=== PATIENT | female | born 1975 | race Caucasian/White ===

== ENCOUNTER 2017-04-11 03:33 | Observation (INO) | payer OTHER ==
--- NOTE | 2017-04-11 03:55 | ED PDOC ---
Arrival/HPI - General Chief Complaint: Chest Pain Time Seen by Provider: 04/11/17 03:36 Historian: Patient - History of Present Illness Narrative History of Present Illness (Text): 04/11/17 03:52 Lisa Palacio is a 42 year old female, whose past medical history includes gestational diabetes, who presents to the Emergency department complaining of chest pain. Patient states she has been experiencing mid-sternal chest pain since waking at 02:30 today. Patient denies any fever, chills, shortness of breath, nausea, vomiting, diarrhea, urinary symptoms, back pain, neck pain, headache, dizziness, or any other complaints. Time/Duration: 1-3 hours (02:30 today) Symptom Onset: Gradual Symptom Course: Unchanged Activities at Onset: Light Context: Home Past Medical History - Provider Review Nursing Documentation Reviewed: Yes - Psychiatric Hx Substance Use: No Family/Social History - Physician Review Nursing Documentation Reviewed: Yes Family/Social History: Unknown Family HX Smoking Status: Never Smoked Hx Alcohol Use: No Hx Substance Use: No Allergies/Home Meds Allergies/Adverse Reactions: Allergies No Known Allergies Allergy (Verified 04/11/17 03:38) Home Medications: Home Meds Medication Instructions Recorded Confirmed No Known Home Med 04/11/17 04/11/17 Review of Systems - Physician Review All systems were reviewed & negative as marked: Yes - Review of Systems Constitutional: Normal. absent: Fevers Eyes: Normal ENT: Normal Respiratory: Normal. absent: SOB, Cough Cardiovascular: Chest Pain Gastrointestinal: Normal. absent: Abdominal Pain, Diarrhea, Nausea, Vomiting Genitourinary Female: Normal. absent: Dysuria, Frequency, Hematuria, Urine Output Changes Musculoskeletal: Normal. absent: Back Pain, Neck Pain Skin: Normal. absent: Rash Neurological: Normal. absent: Headache, Dizziness Endocrine: Normal Hemo/Lymphatic: Normal Psychiatric: Normal Physical Exam Vital Signs Reviewed: Yes Vital Signs Temp Pulse Resp BP Pulse Ox 04/11/17 07:01 77 16 107/63 99 04/11/17 05:40 74 18 111/65 99 04/11/17 03:48 98.0 F 72 17 135/77 100 Temperature: Afebrile Blood Pressure: Normal Pulse: Regular Respiratory Rate: Normal Appearance: Positive for: Well-Appearing, Non-Toxic, Comfortable Pain Distress: None Mental Status: Positive for: Alert and Oriented X 3 - Systems Exam Head: Present: Atraumatic, Normocephalic Pupils: Present: PERRL Extroacular Muscles: Present: EOMI Conjunctiva: Present: Normal Mouth: Present: Moist Mucous Membranes Neck: Present: Normal Range of Motion Respiratory/Chest: Present: Clear to Auscultation, Good Air Exchange. No: Respiratory Distress, Accessory Muscle Use Cardiovascular: Present: Regular Rate and Rhythm, Normal S1, S2. No: Murmurs Abdomen: Present: Normal Bowel Sounds. No: Tenderness, Distention, Peritoneal Signs Back: Present: Normal Inspection Upper Extremity: Present: Normal Inspection. No: Cyanosis, Edema Lower Extremity: Present: Normal Inspection. No: Edema Neurological: Present: GCS=15, CN II-XII Intact, Speech Normal Skin: Present: Warm, Dry, Normal Color. No: Rashes Psychiatric: Present: Alert, Oriented x 3, Normal Insight, Normal Concentration Medical Decision Making ED Course and Treatment: 04/11/17 03:52 Impression: 42 year old female complaining of mid-sternal chest pain since 02:30 today. Plan: -- EKG -- Chest X-ray -- Labs, cardiac enzymes, D-dimer -- Reassess and disposition Progress Notes: Reviewed EKG, NSR at [address]-segment elevations or depressions, no T-wave inversions, normal intervals. 04/11/17 04:43 Labs reviewed, D-dimer: 289. CTA Chest ordered. 04/11/17 06:15 Chest X-ray reviewed, shows no acute processes. 04/11/17 06:45 CTA Chest shows: Pulmonary arteries: No CT evidence for pulmonary embolus. Aorta: No acute findings. No thoracic aortic aneurysm. Lungs: Mild parabronchial cuffing, which can be seen with bronchitis, reactive airway disease or viral pneumonitis versus mild failure.There is bibasilar atelectasis. No mass. Pleural space: Unremarkable. No significant effusion. No pneumothorax. Heart: Cardiomegaly. Mediastinum: Small hiatal hernia. Bones/joints: Left sided thoracic scoliosis. No acute fracture. No dislocation. Soft tissues: Unremarkable. Lymph nodes: Bilateral hilar lymph nodes. Gallbladder and bile ducts: Distended gallbladder with gallstone. Adrenals: Normal adrenal glands. IMPRESSION: 1. No CT evidence for pulmonary embolus. 2. Mild parabronchial cuffing, which can be seen with bronchitis, reactive airway disease or viral pneumonitis versus mild failure.There is bibasilar atelectasis. 3. Distended gallbladder with gallstone. 04/11/17 06:56 Case discussed with director medical safety center receptionist, who is aware and agrees with plan. House doctor paged. 04/11/17 07:[address] Gregg, who will speak to hospitalist regarding case. - Lab Interpretations Lab Results: 04/11/17 04:01 04/11/17 04:01 Lab Results 04/11/17 04:01: WBC 4.9, RBC 4.03, Hgb 12.0, Hct 35.5 L, MCV 88.1, MCH 29.8, MCHC 33.8, RDW 13.0, Plt Count 259, MPV 9.0 04/11/17 04:01: Sodium 138, Potassium 3.8, Chloride 105, Carbon Dioxide 25, Anion Gap 12, BUN 8, Creatinine 0.5 L, Est GFR ( Amer) > 60, Est GFR (Non -Af Amer) > 60, Random Glucose 144 H, Calcium 9.4, Total Bilirubin 0.5, AST 23, ALT 36, Alkaline Phosphatase 68, Lactate Dehydrogenase 343, Total Creatine Kinase 92, Troponin I < 0.01, Total Protein 7.0, Albumin 4.1, Globulin 2.9, Albumin/Globulin Ratio 1.4 04/11/17 04:01: PT 10.7, INR 0.94, APTT 26.7, D-Dimer, Quantitative 289 H I have reviewed the lab results: Yes - RAD Interpretation Radiology Orders: 04/11/17 03:54 CHEST PORTABLE [RAD] Stat 04/11/17 04:43 ANGIO CHEST PE PROTOCOL [CT] Stat Oil Lease Buyer: ED Physician, Radiologist - EKG Interpretation Interpreted by ED Physician: Yes Type: 12 lead EKG - Medication Orders Current Medication Orders: Discontinued Medications Aspirin (Aspirin) 325 mg PO ONCE STA Stop: 04/11/17 06:52 - Scribe Statement The provider has reviewed the documentation as recorded by the Virginia Alexandra Provider Scribe Attestation: All medical record entries made by the Scribe were at my direction and personally dictated by me. I have reviewed the chart and agree that the record accurately reflects my personal performance of the history, physical exam, medical decision making, and the department course for this patient. I have also personally directed, reviewed, and agree with the discharge instructions and disposition. Disposition/Present on Arrival - Present on Arrival Any Indicators Present on Arrival: No History of DVT/PE: No History of Uncontrolled Diabetes: No Urinary Catheter: No History of Decub. Ulcer: No History Surgical Site Infection Following: None - Disposition Have Diagnosis and Disposition been Completed?: Yes Diagnosis: Chest pain Disposition: HOSPITALIZED Disposition Time: 06:49 Patient Plan: Observation Patient Problems: Current Active Problems Problem Status Onset Chest pain Acute Condition: STABLE
[2017-04-11 04:14] LABS: MEAN CELL VOLUME 88.1 fl (80.0-105.0); MEAN CORPUSCULAR HEMOGLOBIN 29.8 pg (25.0-35.0); MEAN CORPUSCULAR HGB CONC 33.8 g/dl (31.0-37.0); RBC 4.03 10^6/uL (3.5-6.1); WHITE BLOOD COUNT 4.9 10^3/ul (4.5-11.0)
[2017-04-11 04:25] LABS: ALB/GLOB RATIO 1.4 (1.1-1.8); ALBUMIN 4.1 g/dL (3.0-4.8); ALT/SGPT 36 U/L (7-56); AST/SGOT 23 U/L (14-36); BLOOD UREA NITROGEN 8 mg/dL (7-21); CALCIUM 9.4 mg/dL (8.4-10.5); GFR AFRICAN-AMERICAN > 60; GFR NON-AFRICAN AMERICAN > 60
[2017-04-11 04:36] LABS: TROPONIN I < 0.01 ng/mL
[2017-04-11 04:37] LABS: INR 0.94 (0.93-1.08); PARTIAL THROMBOPLASTIN TIME 26.7 Seconds (25.1-36.5); PROTHROMBIN TIME 10.7 SECONDS (9.4-12.5)
[2017-04-11] MEDS ORDERED: Iohexol 350 MG/100 ML VIAL ONE (05:10)
--- NOTE | 2017-04-11 06:43 | CT ---
EXAM: CT Angiography Chest With Intravenous Contrast CLINICAL HISTORY: 42 years old, female; Signs and symptoms; Shortness of breath; Additional info: SOB TECHNIQUE: Axial computed tomographic angiography images of the chest with intravenous contrast using pulmonary embolism protocol. All CT scans at this facility use one or more dose reduction techniques, viz.: automated exposure control; ma/kV adjustment per patient size (including targeted exams where dose is matched to indication; i.e. head); or iterative reconstruction technique. 842 images are submitted. MIP reconstructed images were created and reviewed. Coronal and sagittal reformatted images were created and reviewed. CONTRAST: 100 mL of omnipaque 350 administered intravenously. COMPARISON: No relevant prior studies available. FINDINGS: Pulmonary arteries: No CT evidence for pulmonary embolus. Aorta: No acute findings. No thoracic aortic aneurysm. Lungs: Mild parabronchial cuffing, which can be seen with bronchitis, reactive airway disease or viral pneumonitis versus mild failure.There is bibasilar atelectasis. No mass. Pleural space: Unremarkable. No significant effusion. No pneumothorax. Heart: Cardiomegaly. Mediastinum: Small hiatal hernia. Bones/joints: Left sided thoracic scoliosis. No acute fracture. No dislocation. Soft tissues: Unremarkable. Lymph nodes: Bilateral hilar lymph nodes. Gallbladder and bile ducts: Distended gallbladder with gallstone. Adrenals: Normal adrenal glands. IMPRESSION: 1. No CT evidence for pulmonary embolus. 2. Mild parabronchial cuffing, which can be seen with bronchitis, reactive airway disease or viral pneumonitis versus mild failure.There is bibasilar atelectasis. 3. Distended gallbladder with gallstone.
--- NOTE | 2017-04-11 06:58 | CP.PCM.HP ---
<Criselda Grimm - Last Filed: 04/11/17 07:50> History of Present Illness - History of Present Illness History of Present Illness: 42yo female PMHx gestational DM not taking any medications presented to ED with complaint of chest pain that started at 2am on day of admission. Patient states she woke up from sleep with 10/10 intense sharp stabbing chest pain that started at her left upper back and radiated to her left upper chest wall. Patient states this is not the first time she has experienced this pain- last time the pain also occurred when she was asleep 1 month ago and lasted for 1 hour. On this instance, the pain lasted for 2 hours and felt like "a knife stabbing her heart from the back". She reported some SOB at the time of the chest pain but denied any diaphoresis or change in the pain with inspiration. The pain did not radiate down her left arm or up her jaw. Patient stated that after receiving ASA in the ED the pain is a 4/10. She denied any associated fever, chills, headache, dizziness, blurry vision, sore throat, abdom pain, nausea, vomiting, bowel/bladder complaints, swelling in her legs. Patient did admit to some cramping pain in her legs bilaterally. She denied any recent travel/sick contacts. ROS: 12 point review of systems negative except as indicated in HPI PMHx: gestational DM PSurgHx: denies Family Hx: mother with DM Social Hx: denies EtOH, tobacco, drug use. Lives at home with and 5 children. No longer working after child was born last year. Meds: Please see medication reconciliation ALL: NKDA PMD: Dr. Lopez- seen 5 months ago Present on Admission - Present on Admission Any Indicators Present on Admission: No Review of Systems - Review of Systems All systems: reviewed and no additional remarkable complaints except - Constitutional Constitutional: As Per HPI. absent: Chills, Fever - EENT Eyes: As Per HPI. absent: Blurred Vision Ears: As Per HPI. absent: Dizziness Nose/Mouth/Throat: As Per HPI. absent: Sore Throat - Cardiovascular Cardiovascular: As Per HPI, Chest Pain, Dyspnea. absent: Chest Pain with Activity, Diaphoresis, Dyspnea on Exertion, Edema, Pain Radiating to Arm/Neck/ Jaw, Leg Edema, Palpitations, Pedal Edema - Respiratory Respiratory: As Per HPI, Dyspnea. absent: Cough, Dyspnea on Exertion, Wheezing - Gastrointestinal Gastrointestinal: As Per HPI. absent: Abdominal Pain, Constipation, Diarrhea, Nausea, Vomiting - Genitourinary Genitourinary: As Per HPI. absent: Dysuria, Hematuria, Pyuria - Musculoskeletal Musculoskeletal: As Per HPI, Muscle Cramps (b/l LE). absent: Back Pain, Numbness, Tingling - Integumentary Integumentary: As Per HPI. absent: Rash - Neurological Neurological: As Per HPI. absent: Dizziness, Headaches - Psychiatric Psychiatric: As Per HPI. absent: Anxiety, Depression Additional comments: admits to some life stressors - Endocrine Endocrine: As Per HPI. absent: Polydipsia, Polyphagia, Polyuria - Hematologic/Lymphatic Hematologic: As Per HPI. absent: Easy Bleeding, Easy Bruising, Lymphadenopathy Past Patient History - Past Social History Smoking Status: Never Smoked - PSYCHIATRIC Hx Substance Use: No - SURGICAL HISTORY Hx Surgeries: No Meds Allergies/Adverse Reactions: Allergies Allergy/AdvReac Type Severity Reaction Status Date / Time No Known Allergies Allergy Verified 04/11/17 03:38 Physical Exam - Constitutional Appears: Non-toxic, No Acute Distress - Head Exam Head Exam: ATRAUMATIC, NORMAL INSPECTION, NORMOCEPHALIC - Eye Exam Eye Exam: EOMI, Normal appearance, PERRL. absent: Conjunctival injection, Scleral icterus Pupil Exam: NORMAL ACCOMODATION - ENT Exam ENT Exam: Mucous Membranes Moist - Neck Exam Neck exam: Positive for: Full Rom, Normal Inspection. Negative for: Tenderness - Respiratory Exam Respiratory Exam: Clear to Auscultation Bilateral, NORMAL BREATHING PATTERN. absent: Accessory Muscle Use, Rales, Rhonchi, Wheezes, Respiratory Distress - Cardiovascular Exam Cardiovascular Exam: REGULAR RHYTHM, RRR, +S1, +S2. absent: Systolic Murmur - GI/Abdominal Exam GI & Abdominal Exam: Normal Bowel Sounds, Soft. absent: Distended, Firm, Guarding, Rigid, Tenderness - Extremities Exam Extremities exam: Positive for: normal capillary refill, normal inspection, pedal pulses present. Negative for: pedal edema Additional comments: some decreased ROM of left shoulder secondary to pain - Back Exam Back exam: NORMAL INSPECTION. absent: rash noted, tenderness - Neurological Exam Neurological exam: Alert, CN II-XII Intact, Oriented x3 - Psychiatric Exam Psychiatric exam: Normal Affect, Normal Mood - Skin Skin Exam: Dry, Intact, Normal Color, Warm Results - Vital Signs Recent Vital Signs: Last Vital Signs Temp 98.0 F 04/11/17 03:48 Pulse 74 04/11/17 05:40 Resp 18 04/11/17 05:40 BP 111/65 04/11/17 05:40 Pulse Ox 99 04/11/17 05:40 - Labs Result Diagrams: 04/11/17 04:01 04/11/17 04:01 Assessment & Plan - Assessment and Plan (Free Text) Assessment: 42yo female PMHx gestational DM not taking any medications presented to ED with complaint of chest pain that started at 2am on day of admission. Plan: Chest pain r/o ACS -admit to TELE-Obs -troponin x 1 : negative f/u troponin x 2 -EKG: NSR -f/u lipid panel, HgbA1c, TSH and free T4 -ASA 81mg po qdaily -patient likely requires outpatient stress test -Cardio consult: Dr. Canas Elevated D-dimer -D dimer: 289 -CTA: negative for PE, mild parabronchial cuffing which can be seen with bronchitis, reactive airway disease or viral pneumonitis vs mild failure. There is bibasilar atelectasis. Distended gallbladder with gallstone Hx of gestational DM -no acute issues GI ppx: Pepcid 20mg po qd DVT ppx: SCDs and Heparin 5000u sc q12 Diet: Heart Healthy Diet Discussed with Dr. David Grimm PGY2 <Ada Hernandez - Last Filed: 04/11/17 17:40> Results - Vital Signs Recent Vital Signs: Last Vital Signs Temp 98.2 F 04/11/17 12:08 Pulse 82 04/11/17 12:08 Resp 18 04/11/17 12:08 BP 102/64 04/11/17 12:08 Pulse Ox 98 04/11/17 11:17 - Labs Result Diagrams: 04/11/17 04:01 04/11/17 04:01 Labs: Laboratory Results - last 24 hr 04/11/17 04/11/17 04/11/17 09:28 09:32 09:32 POC Glucose (mg/dL) 94 Phosphorus 3.4 Magnesium 1.9 Troponin I < 0.01 Triglycerides 64 Cholesterol 171 LDL Cholesterol Direct 90 HDL Cholesterol 57 Free T4 1.21 TSH 3rd Generation 2.49 Urine HCG, Qual 04/11/17 09:32 POC Glucose (mg/dL) Phosphorus Magnesium Troponin I Triglycerides Cholesterol LDL Cholesterol Direct HDL Cholesterol Free T4 TSH 3rd Generation Urine HCG, Qual Negative Attending/Attestation - Attestation I have personally seen and examined this patient.: Yes I have fully participated in the care of the patient.: Yes I have reviewed all pertinent clinical information: Yes Notes (Text): 04/11/17 17:37 Patient was seen and examined with medical receptionist. Agreed with resident assessment and plan. 42 yrs old female is admitted with atypical chest pain, pain increased with movement of left shoulder, we will monitor in telemetry, we will get serial troponin.We will also get lipid profile. If serial troponin will be negative and patient id pain free, can be discharged home , will need out patient stress test. Management plan was discussed in detail with patient Education was provided.
--- NOTE | 2017-04-11 08:46 | RAD ---
HISTORY: fever COMPARISON: 07/16/2016 FINDINGS: LUNGS: No active pulmonary disease. PLEURA: No significant pleural effusion identified, no pneumothorax apparent. CARDIOVASCULAR: Normal. OSSEOUS STRUCTURES: No significant abnormalities. VISUALIZED UPPER ABDOMEN: Normal. OTHER FINDINGS: None. IMPRESSION: No active disease.
[2017-04-11 09:54] LABS: HDL CHOLESTEROL 57 mg/dL (29-60); MAGNESIUM 1.9 mg/dL (1.7-2.2)
[2017-04-11 10:02] LABS: LDL CHOLESTEROL 90 mg/dL (0-129); TROPONIN I < 0.01 ng/mL
[2017-04-11 10:06] LABS: FREE T4 1.21 ng/dL (0.78-2.19)
[2017-04-11 10:53] VITALS: RESP 18
[2017-04-11 12:18] VITALS: BMI 28.3
[2017-04-11] MEDS ORDERED: Pneumococcal 23-Valent Vaccine IM ONE (12:18)
[2017-04-11] MEDS ORDERED: Influenza Vaccine 60 mcg/0.5 mL SYR (4YR UP) IM ONE (12:18)
--- NOTE | 2017-04-11 13:26 | CP.PCM.DIS ---
<Criselda Grimm - Last Filed: 04/11/17 18:03> Provider - Provider Date of Admission: 04/11/17 06:51 Attending physician: Ada Hernandez MD Primary care physician: Keith Loepz MD Consults: Cardio: Dr. Canas Time Spent in preparation of Discharge (in minutes): 45 Hospital Course - Lab Results Lab Results: Most Recent Lab Values WBC 4.9 10^3/ul (4.5-11.0) 04/11/17 04:01 RBC 4.03 10^6/uL (3.5-6.1) 04/11/17 04:01 Hgb 12.0 g/dL (12.0-16.0) 04/11/17 04:01 Hct 35.5 % (36.0-48.0) L 04/11/17 04:01 MCV 88.1 fl (80.0-105.0) 04/11/17 04:01 MCH 29.8 pg (25.0-35.0) 04/11/17 04:01 MCHC 33.8 g/dl (31.0-37.0) 04/11/17 04:01 RDW 13.0 % (11.5-14.5) 04/11/17 04:01 Plt Count 259 10^3/uL (120.0-450.0) 04/11/17 04:01 MPV 9.0 fl (7.0-11.0) 04/11/17 04:01 PT 10.7 SECONDS (9.4-12.5) 04/11/17 04:01 INR 0.94 (0.93-1.08) 04/11/17 04:01 APTT 26.7 Seconds (25.1-36.5) 04/11/17 04:01 D-Dimer, Quantitative 289 ng/mL (0-243) H 04/11/17 04:01 Sodium 138 mmol/L (132-148) 04/11/17 04:01 Potassium 3.8 mmol/L (3.6-5.0) 04/11/17 04:01 Chloride 105 mmol/L (98-107) 04/11/17 04:01 Carbon Dioxide 25 mmol/L (21-33) 04/11/17 04:01 Anion Gap 12 (10-20) 04/11/17 04:01 BUN 8 mg/dL (7-21) 04/11/17 04:01 Creatinine 0.5 mg/dl (0.7-1.2) L 04/11/17 04:01 Est GFR ( Amer) > 60 04/11/17 04:01 Est GFR (Non-Af Amer) > 60 04/11/17 04:01 POC Glucose (mg/dL) 94 mg/dL (65-110) 04/11/17 09:28 Random Glucose 144 mg/dL (70-110) H 04/11/17 04:01 Calcium 9.4 mg/dL (8.4-10.5) 04/11/17 04:01 Phosphorus 3.4 mg/dL (2.5-4.5) 04/11/17 09:32 Magnesium 1.9 mg/dL (1.7-2.2) 04/11/17 09:32 Total Bilirubin 0.5 mg/dL (0.2-1.3) 04/11/17 04:01 AST 23 U/L (14-36) 04/11/17 04:01 ALT 36 U/L (7-56) 04/11/17 04:01 Alkaline Phosphatase 68 U/L (38-126) 04/11/17 04:01 Lactate Dehydrogenase 343 U/L (333-699) 04/11/17 04:01 Total Creatine Kinase 92 U/L (35-230) 04/11/17 04:01 Troponin I < 0.01 ng/mL 04/11/17 09:32 Total Protein 7.0 g/dL (5.8-8.3) 04/11/17 04:01 Albumin 4.1 g/dL (3.0-4.8) 04/11/17 04:01 Globulin 2.9 gm/dL 04/11/17 04:01 Albumin/Globulin Ratio 1.4 (1.1-1.8) 04/11/17 04:01 Triglycerides 64 mg/dL (35-160) 04/11/17 09:32 Cholesterol 171 mg/dL (130-200) 04/11/17 09:32 LDL Cholesterol Direct 90 mg/dL (0-129) 04/11/17 09:32 HDL Cholesterol 57 mg/dL (29-60) 04/11/17 09:32 Free T4 1.21 ng/dL (0.78-2.19) 04/11/17 09:32 TSH 3rd Generation 2.49 mIU/mL (0.46-4.68) 04/11/17 09:32 Urine HCG, Qual Negative (NEGATIVE) 04/11/17 09:32 - Hospital Course Hospital Course: Upon Admission 42yo female PMHx gestational DM not taking any medications presented to ED with complaint of chest pain that started at 2am on day of admission. Patient states she woke up from sleep with 10/10 intense sharp stabbing chest pain that started at her left upper back and radiated to her left upper chest wall. Patient states this is not the first time she has experienced this pain- last time the pain also occurred when she was asleep 1 month ago and lasted for 1 hour. On this instance, the pain lasted for 2 hours and felt like "a knife stabbing her heart from the back". She reported some SOB at the time of the chest pain but denied any diaphoresis or change in the pain with inspiration. The pain did not radiate down her left arm or up her jaw. Patient stated that after receiving ASA in the ED the pain is a 4/10. She denied any associated fever, chills, headache, dizziness, blurry vision, sore throat, abdom pain, nausea, vomiting, bowel/bladder complaints, swelling in her legs. Patient did admit to some cramping pain in her legs bilaterally. She denied any recent travel/sick contacts. Patient admitted to TELE-Obs. Cardiology was consulted. Patient had 3 negative troponins and EKG was NSR. Patient's symptoms resolved and she was deemed stable for discharge. 1) Chest pain- r/o ACS: resolved. Recommend outpatient follow up with cardiology and outpatient work up with stress test. 2) Positive d-dimer: CTA negative Upon Discharge Patient stable for discharge home. Patient to take new medication as prescribed: -ASA 81mg po qdaily Disp#30 Patient to follow up with PMD within 7 days and patient to also follow up with cardiology within 10 days for outpatient stress test If symptoms persist or worsen patient to visit ED immediately. Instructions discussed in detail with patient who understands and agrees. Discharge Exam - Head Exam Head Exam: ATRAUMATIC, NORMAL INSPECTION, NORMOCEPHALIC - Eye Exam Eye Exam: EOMI, Normal appearance, PERRL. absent: Conjunctival injection, Scleral icterus Pupil Exam: NORMAL ACCOMODATION - ENT Exam ENT Exam: Mucous Membranes Moist - Neck Exam Neck exam: Full Rom, Normal Inspection - Respiratory Exam Respiratory Exam: Clear to PA & Lateral, NORMAL BREATHING PATTERN, UNREMARKABLE. absent: Accessory Muscle Use, Rales, Rhonchi, Wheezes, Respiratory Distress - Cardiovascular Exam Cardiovascular Exam: REGULAR RHYTHM, RRR, +S1, +S2. absent: Systolic Murmur - GI/Abdominal Exam GI & Abdominal Exam: Normal Bowel Sounds, Soft. absent: Firm, Guarding, Rigid, Tenderness - Extremities Exam Extremities exam: normal capillary refill, normal inspection, pedal pulses present - Back Exam Back exam: NORMAL INSPECTION. absent: rash noted - Neurological Exam Neurological exam: Alert, CN II-XII Intact, Oriented x3 - Psychiatric Exam Psychiatric exam: Normal Affect, Normal Mood - Skin Skin Exam: Dry, Intact, Normal Color, Warm Discharge Plan - Discharge Medications Prescriptions: Aspirin [Aspirin Chewable] 81 mg PO DAILY #30 chew - Follow Up Plan Condition: STABLE Disposition: HOME/ ROUTINE Instructions: Chest Pain (DC), Chest Pain (GEN) Additional Instructions: Patient stable for discharge home. Patient to take new medication as prescribed: -ASA 81mg po qdaily Disp#30 Patient to follow up with PMD within 7 days and patient to also follow up with cardiology within 10 days for outpatient stress test If symptoms persist or worsen patient to visit ED immediately. Instructions discussed in detail with patient who understands and agrees. Referrals: Keith Lopez MD [Primary Care Provider] - Follow up with primary <Ada Hernandez - Last Filed: 04/12/17 12:45> Provider - Provider Date of Admission: 04/11/17 06:51 Attending physician: Ada Hernandez MD Primary care physician: Keith Lopez MD Hospital Course - Lab Results Lab Results: Most Recent Lab Values WBC 4.9 10^3/ul (4.5-11.0) 04/11/17 04:01 RBC 4.03 10^6/uL (3.5-6.1) 04/11/17 04:01 Hgb 12.0 g/dL (12.0-16.0) 04/11/17 04:01 Hct 35.5 % (36.0-48.0) L 04/11/17 04:01 MCV 88.1 fl (80.0-105.0) 04/11/17 04:01 MCH 29.8 pg (25.0-35.0) 04/11/17 04:01 MCHC 33.8 g/dl (31.0-37.0) 04/11/17 04:01 RDW 13.0 % (11.5-14.5) 04/11/17 04:01 Plt Count 259 10^3/uL (120.0-450.0) 04/11/17 04:01 MPV 9.0 fl (7.0-11.0) 04/11/17 04:01 PT 10.7 SECONDS (9.4-12.5) 04/11/17 04:01 INR 0.94 (0.93-1.08) 04/11/17 04:01 APTT 26.7 Seconds (25.1-36.5) 04/11/17 04:01 D-Dimer, Quantitative 289 ng/mL (0-243) H 04/11/17 04:01 Sodium 138 mmol/L (132-148) 04/11/17 04:01 Potassium 3.8 mmol/L (3.6-5.0) 04/11/17 04:01 Chloride 105 mmol/L (98-107) 04/11/17 04:01 Carbon Dioxide 25 mmol/L (21-33) 04/11/17 04:01 Anion Gap 12 (10-20) 04/11/17 04:01 BUN 8 mg/dL (7-21) 04/11/17 04:01 Creatinine 0.5 mg/dl (0.7-1.2) L 04/11/17 04:01 Est GFR ( Amer) > 60 04/11/17 04:01 Est GFR (Non-Af Amer) > 60 04/11/17 04:01 POC Glucose (mg/dL) 94 mg/dL (65-110) 04/11/17 09:28 Random Glucose 144 mg/dL (70-110) H 04/11/17 04:01 Calcium 9.4 mg/dL (8.4-10.5) 04/11/17 04:01 Phosphorus 3.4 mg/dL (2.5-4.5) 04/11/17 09:32 Magnesium 1.9 mg/dL (1.7-2.2) 04/11/17 09:32 Total Bilirubin 0.5 mg/dL (0.2-1.3) 04/11/17 04:01 AST 23 U/L (14-36) 04/11/17 04:01 ALT 36 U/L (7-56) 04/11/17 04:01 Alkaline Phosphatase 68 U/L (38-126) 04/11/17 04:01 Lactate Dehydrogenase 343 U/L (333-699) 04/11/17 04:01 Total Creatine Kinase 92 U/L (35-230) 04/11/17 04:01 Troponin I < 0.01 ng/mL 04/11/17 16:25 Total Protein 7.0 g/dL (5.8-8.3) 04/11/17 04:01 Albumin 4.1 g/dL (3.0-4.8) 04/11/17 04:01 Globulin 2.9 gm/dL 04/11/17 04:01 Albumin/Globulin Ratio 1.4 (1.1-1.8) 04/11/17 04:01 Triglycerides 64 mg/dL (35-160) 04/11/17 09:32 Cholesterol 171 mg/dL (130-200) 04/11/17 09:32 LDL Cholesterol Direct 90 mg/dL (0-129) 04/11/17 09:32 HDL Cholesterol 57 mg/dL (29-60) 04/11/17 09:32 Free T4 1.21 ng/dL (0.78-2.19) 04/11/17 09:32 TSH 3rd Generation 2.49 mIU/mL (0.46-4.68) 04/11/17 09:32 Urine HCG, Qual Negative (NEGATIVE) 04/11/17 09:32 Attending/Attestation - Attestation I have personally seen and examined this patient.: Yes I have fully participated in the care of the patient.: Yes I have reviewed all pertinent clinical information, including history, physical exam and plan: Yes Notes (Text): 04/12/17 12:42 Patient was seen and examined with medical transport specialist. Agreed with resident assessment and plan. 42 yrs old female was admitted with atypical chest pain, Serial troponins are normal.Patient is pain free. Patient was evaluated by cardiology, no further inpatient work up is needed.Patient will be discharged home and will have out patient stress test . Management plan was discussed in detail with patient Education was provided.
--- NOTE | 2017-04-11 15:38 | CARD ---
APPROVED REPORT EKG Measurement Heart [id number] <Conclusion> Normal sinus rhythm Normal ECG
[2017-04-11] MEDS ORDERED: Naproxen 550 mg Tab PO SCH (18:00)
[2017-04-11 18:01] VITALS: BP 108/66; TEMP 97; O2SAT 97
[2017-04-11 19:01] VITALS: PULSE 88
--- NOTE | 2017-04-12 01:50 | CON ---
DATE: 04/11/2017 LOCATION: The patient is in room 375, bed 1. REASON FOR CONSULTATION AND FOLLOWUP: Chest pain. HISTORY OF PRESENT ILLNESS: A 42-year-old female admitted with all of a sudden she was lying down and she felt sharp pain from the back coming to the front of the chest. It was like sharp pain without any radiation to arms or neck. She denies any diaphoresis. Patient denies any nausea or vomiting. She denies any prior history of exertion or angina or any cardiac symptoms or any medical history except that she has 5 pregnancies and 5 deliveries, and with the last 3 deliveries, her blood sugars were elevated during , and after the delivery, the blood sugars became normal. PAST MEDICAL HISTORY: She was never hospitalized except for of the babies. PERSONAL HISTORY: No smoking, no drinking. No allergies. FAMILY HISTORY: Not significant. MEDICATIONS: She does not take any medications home. ALLERGIES: Denies any allergies. REVIEW OF SYSTEMS: All the systems are reviewed and positive as mentioned in the history, others were negative. PHYSICAL EXAMINATION: VITAL SIGNS: Blood pressure 102/64, respirations 18, pulse 82, temperature 98.2. HEENT: Head is normocephalic. Eyes; pupils are normal. Conjunctivae normal. Nose and throat normal. NECK: JVP low. Carotids are equal. THORAX: AP diameter is normal. LUNGS: Clear. CARDIOVASCULAR: S1 and S2. ABDOMEN: Soft. No tenderness. No organomegaly. EXTREMITIES: No edema. No clubbing. No cyanosis. CHEST WALL: Patient has tenderness on the back which is where the pain was and that same tenderness in the front where the pain was, and it is the same pain when I palpated which she came in with. IMAGING: Patient's EKG showed regular sinus rhythm, normal EKG. Chest x-ray, no active disease. Chest CT, no evidence of pulmonary embolism, mild parabronchial coughing which can be related to bronchitis, reactive airway disease, distended gallbladder with gallstones. LABORATORY DATA: Patient's sodium is 138, potassium 3.8, BUN 8, creatinine 0.5. Random glucose 144. AST, ALT, troponin normal. Total protein and albumin normal. Cholesterol 171. Triglycerides 64. TSH 2.49. DIAGNOSES: Chest pain, musculoskeletal. We will give Naprosyn 550 b.i.d. and Protonix 40 daily. Patient is already on aspirin and treat this pain symptomatically. Patient is to have nuclear stress test as outpatient. Ada Canas MD
== END 2017-04-11 19:34 | disposition home or self-care (01) ==
LOC: ED 03:33 → ERH 06:51 → 3RSO 11:32
PROVIDERS: ADMIT Internal Medicine; ATTEND Internal Medicine
DX: R07.89 Other chest pain (principal); K80.20 Calculus of gallbladder without cholecystitis without obstruction; J98.11 Atelectasis; Z86.32 Personal history of gestational diabetes
CPT/HCPCS: 71045; 71275; 80053; 80061; 82550; 82948; 83036; 83615; 83735; 84100; 84439; 84443; 84484; 84703; 85027; 85378; 85610; 85730; 93005; 96372; 99285; G0378; J1644; Q9967